=== PATIENT | male | born 1975 | race Asian ===

== ENCOUNTER 2019-02-28 14:08 | Emergency (ER) | payer OTHER ==
[~2019-02-28] VITALS: Wt 72.4 kg
[~2019-02-28 14:08] MED LIST: IBUP-1561 PO
[2019-02-28 14:47] VITALS: BP 126/74; PULSE 89; RESP 20
== END 2019-02-28 15:38 | disposition home or self-care (01) ==
LOC: FTE 14:08
DX: R51 Headache (principal)
CPT/HCPCS: 99282